=== PATIENT | female | born 1950 | race Caucasian/White ===

== ENCOUNTER → 2016-11-20 | Outpatient (CLI) | payer BC, MEDICARE ==
--- NOTE | 2016-11-20 16:41 | BD ---
EXAMINATION TYPE: MG DEXA axial skeleton. DATE OF EXAM: 11/20/2016 1:19 PM COMPARISON: NONE CLINICAL HISTORY: 66-year-old female postmenopausal screening Height: 5 FT 11 IN Weight: 251 FRAX RISK QUESTIONS: Alcohol (3 or more units per day): N Family History (Parent hip fracture): N Glucocorticoids (More than 3mos): N (Ex: prednisone, prednisolone, methylprednisolone, dexamethasone, and hydrocortisone). History of Fracture in Adulthood: N Secondary Osteoporosis: 1. Type 1 Diabetes: N 2. Hyperthyroidism: N 3. Menopause before 45: YES 4. Malnutrition: NO 5. Chronic liver disease: NO Rheumatoid Arthritis: NO Current Tobacco Use: NO RISK FACTORS HISTORY OF: Active: YES Postmenopausal woman: PART HYST AGE 45 MEDICATIONS: Thyroid Medications: YES Which medication: LEVOTHYROXINE How Lon YR Additional Medications: CARVEDILOL,AMLODIPINE, PREVASTATIN, LEVOTHYROXINE,COQ10,D3 ASA Additional History: EXAM MEASUREMENTS: Bone mineral densitometry was performed using the MDLIVE System. Bone mineral density as measured about the Lumbar spine is: ----- L1-L4(G/cm2): 1.278 T Score Values are as follows: ----- L2: 0.8 ----- L3: 0.8 ----- L4: 1.0 ----- L1-L4: 0.8 Bone mineral density has: Increased 6.0% since study of: 2008 Bone mineral density about the R hip (g/cm2): 0.891 Bone mineral density about the L hip (g/cm2): 0.906 T Score values are as follows: -----R Neck: -1.1 -----L Neck: -0.9 -----R Intertrochanter: -0.4 -----L Intertrochanter: 0.1 Bone mineral density has: Increased 1.4% since study of: 2008 IMPRESSION: Osteopenia as indicated by T score values in the right hip. There is slightly increased risk of fracture and the patient may be considered for treatment. Re-Screen 2-5 years. NOTE: T-SCORE=SD OF THE YOUNG ADULT MEAN.
--- NOTE | 2016-11-23 13:05 | MM ---
Reason for exam: screening (asymptomatic). Last mammogram was performed 1 year ago. History: Patient is postmenopausal. Family history of breast cancer in aunt. Physical Findings: A clinical breast exam by your physician is recommended on an annual basis and results should be correlated with mammographic findings. MG Screening Mammo w CAD Bilateral CC and MLO view(s) were taken. Prior study comparison: November 19, 2015, bilateral MG screening mammo w CAD. November 13, 2014, bilateral MG screening mammo w CAD. There are scattered fibroglandular densities. There is chronic nodularity bilaterally. No significant changes when compared with prior studies. ASSESSMENT: Benign, BI-RAD 2 RECOMMENDATION: Routine screening mammogram of both breasts in 1 year.
== END | disposition home or self-care (01) ==
LOC: RADMAMWWP 12:44
PROVIDERS: ATTEND Internal Medicine
DX: Z12.31 Encounter for screening mammogram for malignant neoplasm of breast (principal); M85.851 Other specified disorders of bone density and structure, right thigh; N95.1 Menopausal and female climacteric states
CPT/HCPCS: 77080; G0202

== ENCOUNTER → 2018-04-01 | Outpatient (CLI) | payer BC ==
--- NOTE | 2018-04-05 13:22 | MM ---
Reason for exam: screening (asymptomatic). Last mammogram was performed 1 year and 4 months ago. History: Patient is postmenopausal. Family history of breast cancer in aunt. Physical Findings: A clinical breast exam by your physician is recommended on an annual basis and results should be correlated with mammographic findings. MG Screening Mammo w CAD Bilateral CC and MLO view(s) were taken. Prior study comparison: November 20, 2016, bilateral MG screening mammo w CAD. November 19, 2015, bilateral MG screening mammo w CAD. There are scattered fibroglandular densities. There is chronic nodularity bilaterally. There is no discrete abnormality. ASSESSMENT: Benign, BI-RAD 2 RECOMMENDATION: Routine screening mammogram of both breasts in 1 year.
== END | disposition home or self-care (01) ==
LOC: RADMAMWWP 12:27
PROVIDERS: ATTEND Internal Medicine
DX: Z12.31 Encounter for screening mammogram for malignant neoplasm of breast (principal)
CPT/HCPCS: 77067

== ENCOUNTER → 2019-04-11 | Outpatient (CLI) | payer BC, MEDICARE ==
--- NOTE | 2019-04-13 10:05 | MM ---
Reason for exam: screening (asymptomatic). Last mammogram was performed 1 year ago. History: Patient is postmenopausal. Family history of breast cancer in aunt. Physical Findings: A clinical breast exam by your physician is recommended on an annual basis and results should be correlated with mammographic findings. MG Screening Mammo w CAD Bilateral CC and MLO view(s) were taken. Prior study comparison: April 01, 2018, bilateral MG screening mammo w CAD. November 20, 2016, bilateral MG screening mammo w CAD. There are scattered fibroglandular densities. There is chronic nodularity in the left breast. No significant changes when compared with prior studies. ASSESSMENT: Negative, BI-RAD 1 RECOMMENDATION: Routine screening mammogram of both breasts in 1 year.
== END | disposition home or self-care (01) ==
LOC: RADMAMWWP 10:08
PROVIDERS: ATTEND Internal Medicine
DX: Z12.31 Encounter for screening mammogram for malignant neoplasm of breast (principal)
CPT/HCPCS: 77067

== ENCOUNTER 2019-08-06 09:51 | Observation (INO) | payer BC, MEDICARE ==
[2019-08-06] MEDS ORDERED: MECLIZINE 12.5 MG TAB PO STA (10:41)
[2019-08-06] MEDS ORDERED: SODIUM CHLORIDE 0.9% 500 ML 500 ML IV STA (10:41)
--- NOTE | 2019-08-06 10:54 | ED ---
General Adult HPI - General Chief complaint: Dizziness Stated complaint: Dizzy Time Seen by Provider: 08/06/19 10:24 Source: patient, RN notes reviewed, old records reviewed Mode of arrival: wheelchair Limitations: no limitations - History of Present Illness Initial comments: 69-year-old female patient passed no history of a fibrillation, hypertension. Patient did have a lobectomy at 8 years old secondary to tuberculosis presents to ED for chief complaint of dizziness and chest pressure. Patient reports that she has a history of vertigo. Patient reports that she had some dizziness yesterday, however was much worse this morning at approximately 5 AM.. Patient reports that she is not a headache, however she feels as if her head is full. She reports that while walking she feels as if she is unsteady. Patient also reports that she is having some mild chest pressure, this also began approximately 5 AM.. Denies any radiation of this pain. Denies any facial droop or focal deficit. Denies any other complaints at this time. Systemic: Pt denies fatigue, fever/chills, rash. Pt denies weakness, night sweats, weight loss. Neuro: Pt denies headache, visual disturbances, syncope or pre-syncope. HEENT: Pt denies ocular discharge or irritation, otalgia, rhinorrhea, pharyngitis or notable lymphadenopathy. Cardiopulmonary: Pt denies heart palpitations, dyspnea on exertion. Abdominal/GI: Pt denies abdominal pain, n/v/d. : Pt denies dysuria, burning w/ urination, frequency/urgency. Denies new onset urinary or bowel incontinence. MSK: Pt denies myalgia, loss of strength or function in extremities. Neuro: Pt denies new onset weakness, paresthesias. - Related Data Home Medications Medication Instructions Recorded Confirmed Carvedilol [Coreg] 18.75 mg PO QAM 04/05/15 11/08/18 Levothyroxine Sodium [Synthroid] 25 mcg PO DAILY 05/24/16 11/08/18 Brimonidine Tartrate [Alphagan P 1 drops BOTH EYES DAILY 11/08/18 11/08/18 0.15% Ophth Soln] Carvedilol [Coreg] 12.5 mg PO HS 11/08/18 11/08/18 Cranberry Fruit Extract [Cranberry] 500 mg PO DAILY 11/08/18 11/08/18 Glucosam/Mark-Msm1/C/Aniket/Bosw 1 tab PO DAILY 11/08/18 11/08/18 [Glucosamine-Chondroitin Tablet] Hydrochlorothiazide [Hydrodiuril] 25 mg PO DAILY@1400 11/08/18 11/08/18 Pravastatin Sodium [Pravachol] 10 mg PO HS 11/08/18 11/08/18 Ubidecarenone [Co Q-10] 100 mg PO DAILY 11/08/18 11/08/18 Previous Rx's Medication Instructions Recorded Aspirin 81 mg PO DAILY 30 Days #30 chewable 11/10/18 Allergies Allergy/AdvReac Type Severity Reaction Status Date / Time NIKHIL Inhibitors Allergy Dyspnea,SWELLING Verified 08/06/19 10:18 OF NECK amlodipine besylate Allergy Dyspnea, Verified 08/06/19 10:18 [From Norvasc] SWELLING OF NECK, ITCHING ciprofloxacin [From Cipro] Allergy VERTIGO Verified 08/06/19 10:18 ciprofloxacin HCl Allergy VERTIGO Verified 08/06/19 10:18 [From Cipro] clonidine HCl [From Catapres] Allergy Dyspnea Verified 08/06/19 10:18 digoxin [From Lanoxin] Allergy Rapid Verified 08/06/19 10:18 Heart Rate diltiazem HCl [From Cardizem] Allergy Itching Verified 08/06/19 10:18 hydralazine [Hydralazine] Allergy Abdominal Verified 08/06/19 10:18 Pain hydrochlorothiazide Allergy FLUSHING Verified 08/06/19 10:18 OF SKIN,BLURRY VISION iodine Allergy Rash/Hives Verified 08/06/19 10:18 metoprolol tartrate Allergy Itching Verified 08/06/19 10:18 [From Lopressor] nebivolol HCl [From Bystolic] Allergy Dyspnea,SWELLING Verified 08/06/19 10:18 OF NECK povidone-iodine Allergy Rash/Hives Verified 08/06/19 10:18 [From Betadine] ramipril [From Altace] Allergy Dyspnea,ANG Verified 08/06/19 10:18 IOEDEMA soap [From Betadine] Allergy Rash/Hives Verified 08/06/19 10:18 sulfamethoxazole Allergy Rash/Hives Verified 08/06/19 10:18 [From Bactrim] trimethoprim [From Bactrim] Allergy Rash/Hives Verified 08/06/19 10:18 warfarin sodium Allergy SEVERE Verified 08/06/19 10:18 [From Coumadin] HEADACHE, RING OF EARS Wcbpuci-Ufr-Doi Reductase AdvReac VERY WEAK Verified 08/06/19 10:18 Inhibitor CARVEDIOL CR Allergy DYSPNEA,CAN Uncoded 08/06/19 10:18 TAKE COREG PLAIN" Review of Systems ROS Statement: Those systems with pertinent positive or pertinent negative responses have been documented in the HPI. ROS Other: All systems not noted in ROS Statement are negative. Past Medical History Past Medical History: Atrial Fibrillation, Hypertension Additional Past Medical History / Comment(s): TB at age 8 yrs-spent [address] [facility] and then they decided to to do a L lung lobectomy-chest xrays since have been negative. History of Any Multi-Drug Resistant Organisms: None Reported Past Surgical History: Hysterectomy Additional Past Surgical History / Comment(s): LEFT LUNG LOBECTOMY at age 8 yrs. ,APPENDECTOMY,PAROTID GLAND TUMOR REMOVED-benign, colonoscopy 2013-normal. Past Anesthesia/Blood Transfusion Reactions: Motion Sickness Past Psychological History: No Psychological Hx Reported Smoking Status: Former smoker Past Alcohol Use History: None Reported Past Drug Use History: None Reported - Past Family History Father Family Medical History: Hypertension General Exam - General Exam Comments Initial Comments: Constitutional: NAD, AOX3, Pt has pleasant affect. HEENT: NC/AT, trachea midline, neck supple, no lymphadenopathy. Posterior pharynx non erythematous, without exudates. External ears appear normal, without discharge. Mucous membranes moist. Eyes PERRLA, EOM intact. There is no scleral icterus. No pallor noted. Cardiopulmonary: RRR, no murmurs, rubs or gallops, no JVD noted. Lungs CTAB in anterior and posterior contreras. No peripheral edema. Abdominal exam: Abdomen soft and non-distended. Abdomen non-tender to palpation in all 4 quadrants. Bowel sounds active in LLQ. No hepatosplenomegaly. No ecchymosis Neuro: CN II-XII intact. No nuchal rigidity. No raccon eyes, no bryant sign, no hemotympanum. No cervical spinal tenderness. NIH 0. MSK: No posterior calf tenderness bilaterally, homans sign negative bilaterally. Posterior tibialis and radial pulse +2 bilaterally. Sensation intact in upper and lower extremities. Full active ROM in upper and lower extremities, 5/5 stregnth. Limitations: no limitations Course Vital Signs 08/06/19 08/06/19 08/06/19 10:15 10:32 11:00 Temperature 98.0 F Pulse Rate 80 67 66 Respiratory 18 15 12 Rate Blood Pressure 190/74 151/93 O2 Sat by Pulse 97 98 96 Oximetry 08/06/19 08/06/19 11:30 12:17 Temperature Pulse Rate 66 60 Respiratory 19 16 Rate Blood Pressure 144/74 136/70 O2 Sat by Pulse 95 99 Oximetry Medical Decision Making - Medical Decision Making 69-year-old female patient passed no history of a fibrillation, hypertension. Patient did have a lobectomy at 8 years old secondary to tuberculosis presents to ED for chief complaint of dizziness and chest pressure. Patient reports that she has a history of vertigo. Patient reports that she had some dizziness yesterday, however was much worse this morning at approximately 5 AM.. Patient reports that she is not a headache, however she feels as if her head is full. She reports that while walking she feels as if she is unsteady. Patient also reports that she is having some mild chest pressure, this also began approximately 5 AM.. Denies any radiation of this pain. Denies any facial droop or focal deficit. Denies any other complaints at this time. Vital signs initially displayed hypertension, improved to normotensive without intervention. Physical exam did not display acute pathology. Neurologic exam is within normal limits. NIH 0. Dizziness/vertigo sensation is reproducible with lateral head movement. The investigations are non-impressive. Troponin is negative. EKG is nonischemic. Patient does report that chest pressure resolved without any intervention. Chest x-ray CT brain did not display acute process. Still endorses some dizziness, however states is improved. Does appear to be vertigo- like in nature. Patient be admitted for cardiology evaluation and serial enzymes. Case discussed with Dr. De La Cruz. Patient can Reportedly not take aspirin due to bleeding issues. - Lab Data Result diagrams: 08/06/19 10:43 08/06/19 10:43 Lab Results 08/06/19 08/06/19 08/06/19 Range/Units 10:43 10:43 10:43 WBC 7.3 (3.8-10.6) k/uL RBC 4.71 (3.80-5.40) m/uL Hgb 14.0 (11.4-16.0) gm/dL Hct 42.2 (34.0-46.0) % MCV 89.7 (80.0-100.0) fL MCH 29.8 (25.0-35.0) pg MCHC 33.2 (31.0-37.0) g/dL RDW 12.7 (11.5-15.5) % Plt Count 318 (150-450) k/uL Neutrophils % 77 % Lymphocytes % 15 % Monocytes % 3 % Eosinophils % 2 % Basophils % 1 % Neutrophils # 5.6 (1.3-7.7) k/uL Lymphocytes # 1.1 (1.0-4.8) k/uL Monocytes # 0.2 (0-1.0) k/uL Eosinophils # 0.2 (0-0.7) k/uL Basophils # 0.1 (0-0.2) k/uL PT (9.0-12.0) sec INR (<1.2) APTT (22.0-30.0) sec Sodium 140 (137-145) mmol/L Potassium 3.9 (3.5-5.1) mmol/L Chloride 105 (98-107) mmol/L Carbon Dioxide 29 (22-30) mmol/L Anion Gap 6 mmol/L BUN 10 (7-17) mg/dL Creatinine 0.74 (0.52-1.04) mg/dL Est GFR (CKD-EPI)AfAm >90 (>60 ml/min/1.73 sqM) Est GFR (CKD-EPI)NonAf 84 (>60 ml/min/1.73 sqM) Glucose 106 H (74-99) mg/dL Calcium 9.8 (8.4-10.2) mg/dL Total Bilirubin 0.8 (0.2-1.3) mg/dL AST 35 (14-36) U/L ALT 16 (4-34) U/L Alkaline Phosphatase 93 (38-126) U/L Troponin I <0.012 (0.000-0.034) ng/mL Total Protein 8.0 (6.3-8.2) g/dL Albumin 4.6 (3.5-5.0) g/dL Urine Color Urine Appearance (Clear) Urine pH (5.0-8.0) Ur Specific [place] (1.001-1.035) Urine Protein (Negative) Urine Glucose (UA) (Negative) Urine Ketones (Negative) Urine Blood (Negative) Urine Nitrite (Negative) Urine Bilirubin (Negative) Urine Urobilinogen (<2.0) mg/dL Ur Leukocyte Esterase (Negative) 08/06/19 08/06/19 Range/Units 10:43 11:40 WBC (3.8-10.6) k/uL RBC (3.80-5.40) m/uL Hgb (11.4-16.0) gm/dL Hct (34.0-46.0) % MCV (80.0-100.0) fL MCH (25.0-35.0) pg MCHC (31.0-37.0) g/dL RDW (11.5-15.5) % Plt Count (150-450) k/uL Neutrophils % % Lymphocytes % % Monocytes % % Eosinophils % % Basophils % % Neutrophils # (1.3-7.7) k/uL Lymphocytes # (1.0-4.8) k/uL Monocytes # (0-1.0) k/uL Eosinophils # (0-0.7) k/uL Basophils # (0-0.2) k/uL PT 10.1 (9.0-12.0) sec INR 0.9 (<1.2) APTT 25.0 (22.0-30.0) sec Sodium (137-145) mmol/L Potassium (3.5-5.1) mmol/L Chloride (98-107) mmol/L Carbon Dioxide (22-30) mmol/L Anion Gap mmol/L BUN (7-17) mg/dL Creatinine (0.52-1.04) mg/dL Est GFR (CKD-EPI)AfAm (>60 ml/min/1.73 sqM) Est GFR (CKD-EPI)NonAf (>60 ml/min/1.73 sqM) Glucose (74-99) mg/dL Calcium (8.4-10.2) mg/dL Total Bilirubin (0.2-1.3) mg/dL AST (14-36) U/L ALT (4-34) U/L Alkaline Phosphatase (38-126) U/L Troponin I (0.000-0.034) ng/mL Total Protein (6.3-8.2) g/dL Albumin (3.5-5.0) g/dL Urine Color Light Yellow Urine Appearance Clear (Clear) Urine pH 7.5 (5.0-8.0) Ur Specific [place] 1.003 (1.001-1.035) Urine Protein Negative (Negative) Urine Glucose (UA) Negative (Negative) Urine Ketones Negative (Negative) Urine Blood Negative (Negative) Urine Nitrite Negative (Negative) Urine Bilirubin Negative (Negative) Urine Urobilinogen <2.0 (<2.0) mg/dL Ur Leukocyte Esterase Negative (Negative) Disposition Clinical Impression: Dizziness, Chest pressure, Vertigo Disposition: ADMITTED IP TO THIS HOSP Condition: Stable Is patient prescribed a controlled substance at d/c from ED?: No Referrals: Kathie St MD [Primary Care Provider] - 1-2 days
[2019-08-06 10:58] LABS: Basophils # (A) 0.1 k/uL (0-0.2); Basophils % (A) 1 %; Eosinophils # (A) 0.2 k/uL (0-0.7); Eosinophils % (A) 2 %; HCT 42.2 % (34.0-46.0); Lymphocytes # (A) 1.1 k/uL (1.0-4.8); Lymphocytes % (A) 15 %; MCH 29.8 pg (25.0-35.0); MCHC 33.2 g/dL (31.0-37.0); MCV 89.7 fL (80.0-100.0); Mean Platelet Volume 7.4; Monocytes # (A) 0.2 k/uL (0-1.0); Monocytes % (A) 3 %; Neutrophils # (A) 5.6 k/uL (1.3-7.7); Neutrophils % (A) 77 %; Platelet Count 318 k/uL (150-450); RBC 4.71 m/uL (3.80-5.40); RDW 12.7 % (11.5-15.5); WBC 7.3 k/uL (3.8-10.6)
[2019-08-06 11:07] LABS: ALT 16 U/L (4-34); AST 35 U/L (14-36); African American GFR (CKD) >90 (>60 ml/min/1.73 sqM); Albumin 4.6 g/dL (3.5-5.0); Alkaline Phosphatase 93 U/L (38-126); Anion Gap 6 mmol/L; Blood Urea Nitrogen 10 mg/dL (7-17); Calcium 9.8 mg/dL (8.4-10.2); Carbon Dioxide 29 mmol/L (22-30); Chloride 105 mmol/L (98-107); Glucose 106 mg/dL (74-99); Non-African American GFR(CKD) 84 (>60 ml/min/1.73 sqM); Potassium 3.9 mmol/L (3.5-5.1); Sodium 140 mmol/L (137-145); Total Bilirubin 0.8 mg/dL (0.2-1.3)
[2019-08-06 11:12] LABS: INR 0.9 (<1.2); Prothrombin Time 10.1 sec (9.0-12.0)
--- NOTE | 2019-08-06 11:28 | CT ---
EXAMINATION TYPE: CT brain wo con DATE OF EXAM: 08/06/2019 COMPARISON: Previous study dated 11/08/2018 HISTORY: Dizziness CT DLP: 1131.4 mGycm Automated exposure control for dose reduction was used. FINDINGS: Central structures are midline. There is no evidence of hydrocephalus. No acute focal lesion, mass ef fect or midline shift is seen. I do not see evidence of intracranial blood. Visualized portions of the paranasal sinuses and mastoids are clear. The bony calvarium is intact. Th ere is at least 2 small subcutaneous lesions in the posterior right occipital parietal region, likely representing sebaceous cysts. IMPRESSION: 1. NO ACUTE INTRACRANIAL ABNORMALITY. 2. PROBABLE SEBACEOUS CYST WITHIN THE SCALP IN THE RIGHT POSTERIOR PARIETAL REGION.
--- NOTE | 2019-08-06 11:38 | XR ---
EXAMINATION TYPE: XR chest 2V DATE OF EXAM: 08/06/2019 HISTORY: chest pressure. REFERENCE: Previous study dated 11/08/2018. FINDINGS: There is chronic pleural parenchymal density on the left. Lungs otherwise clear. Heart size upper limits of normal. IMPRESSION: NO SIGNIFICANT INTERVAL CHANGE IN THE APPEARANCE OF THE CHEST.
[2019-08-06 11:50] LABS: Appearance,Urine Clear (Clear); Bilirubin,Urine Negative (Negative); Blood,Urine Negative (Negative); Color,Urine Light Yellow; Glucose,Urine (UA) Negative (Negative); Ketones,Urine Negative (Negative); Leukocyte Esterase,Urine Negative (Negative); Nitrite,Urine Negative (Negative); PH, Urine 7.5 (5.0-8.0); Protein,Urine Negative (Negative); Specific Gravity,Urine 1.003 (1.001-1.035); Urobilinogen,Urine <2.0 mg/dL (<2.0)
[2019-08-06] MEDS ORDERED: METOCLOPRAMIDE 5 MG/ML 2 ML VIAL IVP STA (12:05)
[2019-08-06] MEDS ORDERED: NITROGLYCERIN SL TABS 0.4 MG TAB SUBLINGUAL PRN (12:54)
[2019-08-06] MEDS ORDERED: MECLIZINE 25 MG TAB PO PRN (12:56)
--- NOTE | 2019-08-06 12:59 | ED ---
Medical Decision Making - Lab Data Result diagrams: 08/06/19 10:43 08/06/19 10:43 Lab Results 08/06/19 08/06/19 08/06/19 Range/Units 10:43 10:43 10:43 WBC 7.3 (3.8-10.6) k/uL RBC 4.71 (3.80-5.40) m/uL Hgb 14.0 (11.4-16.0) gm/dL Hct 42.2 (34.0-46.0) % MCV 89.7 (80.0-100.0) fL MCH 29.8 (25.0-35.0) pg MCHC 33.2 (31.0-37.0) g/dL RDW 12.7 (11.5-15.5) % Plt Count 318 (150-450) k/uL Neutrophils % 77 % Lymphocytes % 15 % Monocytes % 3 % Eosinophils % 2 % Basophils % 1 % Neutrophils # 5.6 (1.3-7.7) k/uL Lymphocytes # 1.1 (1.0-4.8) k/uL Monocytes # 0.2 (0-1.0) k/uL Eosinophils # 0.2 (0-0.7) k/uL Basophils # 0.1 (0-0.2) k/uL PT (9.0-12.0) sec INR (<1.2) APTT (22.0-30.0) sec Sodium 140 (137-145) mmol/L Potassium 3.9 (3.5-5.1) mmol/L Chloride 105 (98-107) mmol/L Carbon Dioxide 29 (22-30) mmol/L Anion Gap 6 mmol/L BUN 10 (7-17) mg/dL Creatinine 0.74 (0.52-1.04) mg/dL Est GFR (CKD-EPI)AfAm >90 (>60 ml/min/1.73 sqM) Est GFR (CKD-EPI)NonAf 84 (>60 ml/min/1.73 sqM) Glucose 106 H (74-99) mg/dL Calcium 9.8 (8.4-10.2) mg/dL Total Bilirubin 0.8 (0.2-1.3) mg/dL AST 35 (14-36) U/L ALT 16 (4-34) U/L Alkaline Phosphatase 93 (38-126) U/L Troponin I <0.012 (0.000-0.034) ng/mL Total Protein 8.0 (6.3-8.2) g/dL Albumin 4.6 (3.5-5.0) g/dL Urine Color Urine Appearance (Clear) Urine pH (5.0-8.0) Ur Specific [place] (1.001-1.035) Urine Protein (Negative) Urine Glucose (UA) (Negative) Urine Ketones (Negative) Urine Blood (Negative) Urine Nitrite (Negative) Urine Bilirubin (Negative) Urine Urobilinogen (<2.0) mg/dL Ur Leukocyte Esterase (Negative) 08/06/19 08/06/19 Range/Units 10:43 11:40 WBC (3.8-10.6) k/uL RBC (3.80-5.40) m/uL Hgb (11.4-16.0) gm/dL Hct (34.0-46.0) % MCV (80.0-100.0) fL MCH (25.0-35.0) pg MCHC (31.0-37.0) g/dL RDW (11.5-15.5) % Plt Count (150-450) k/uL Neutrophils % % Lymphocytes % % Monocytes % % Eosinophils % % Basophils % % Neutrophils # (1.3-7.7) k/uL Lymphocytes # (1.0-4.8) k/uL Monocytes # (0-1.0) k/uL Eosinophils # (0-0.7) k/uL Basophils # (0-0.2) k/uL PT 10.1 (9.0-12.0) sec INR 0.9 (<1.2) APTT 25.0 (22.0-30.0) sec Sodium (137-145) mmol/L Potassium (3.5-5.1) mmol/L Chloride (98-107) mmol/L Carbon Dioxide (22-30) mmol/L Anion Gap mmol/L BUN (7-17) mg/dL Creatinine (0.52-1.04) mg/dL Est GFR (CKD-EPI)AfAm (>60 ml/min/1.73 sqM) Est GFR (CKD-EPI)NonAf (>60 ml/min/1.73 sqM) Glucose (74-99) mg/dL Calcium (8.4-10.2) mg/dL Total Bilirubin (0.2-1.3) mg/dL AST (14-36) U/L ALT (4-34) U/L Alkaline Phosphatase (38-126) U/L Troponin I (0.000-0.034) ng/mL Total Protein (6.3-8.2) g/dL Albumin (3.5-5.0) g/dL Urine Color Light Yellow Urine Appearance Clear (Clear) Urine pH 7.5 (5.0-8.0) Ur Specific [place] 1.003 (1.001-1.035) Urine Protein Negative (Negative) Urine Glucose (UA) Negative (Negative) Urine Ketones Negative (Negative) Urine Blood Negative (Negative) Urine Nitrite Negative (Negative) Urine Bilirubin Negative (Negative) Urine Urobilinogen <2.0 (<2.0) mg/dL Ur Leukocyte Esterase Negative (Negative) - EKG Data -: EKG Interpreted by Me (and Dr. De La Cruz) EKG Comments: Ventricular rate 71, painful and 22, QRS 84, QT/QTc 412/447. Normal sinus rhythm, normal EKG, no concern for acute ischemia. Disposition Clinical Impression: Dizziness, Chest pressure, Vertigo Disposition: ADMITTED IP TO THIS [facility] Condition: Stable Is patient prescribed a controlled substance at d/c from ED?: No Referrals: Kathie St MD [Primary Care Provider] - 1-2 days
[2019-08-06 14:48] VITALS: RESP 18
[2019-08-06] MEDS: CARVEDILOL 12.5 MG TAB PO SCH (21:31)
[2019-08-07 06:36] LABS: Cholesterol 181 mg/dL (<200); HDL Cholesterol 60 mg/dL (40-60); LDL Cholesterol,Calculated 101 mg/dL (0-99); Triglycerides 100 mg/dL (<150)
[2019-08-07] MEDS: CARVEDILOL 12.5 MG TAB PO SCH (08:43)
[2019-08-07 08:45] LABS: Basophils # (A) 0.1 k/uL (0-0.2); Basophils % (A) 1 %; Eosinophils # (A) 0.2 k/uL (0-0.7); Eosinophils % (A) 4 %; HCT 38.1 % (34.0-46.0); HGB 12.6 gm/dL (11.4-16.0); Lymphocytes # (A) 1.5 k/uL (1.0-4.8); Lymphocytes % (A) 28 %; MCH 30.3 pg (25.0-35.0); MCV 91.9 fL (80.0-100.0); Mean Platelet Volume 7.8; Monocytes # (A) 0.4 k/uL (0-1.0); Monocytes % (A) 8 %; Neutrophils # (A) 3.2 k/uL (1.3-7.7); Neutrophils % (A) 59 %; Platelet Count 270 k/uL (150-450); RBC 4.15 m/uL (3.80-5.40); RDW 12.9 % (11.5-15.5); WBC 5.6 k/uL (3.8-10.6)
[2019-08-07] MEDS ORDERED: MECLIZINE 25 MG TAB PO SCH (09:00)
[2019-08-07 09:18] LABS: ALT 13 U/L (4-34); AST 26 U/L (14-36); African American GFR (CKD) >90 (>60 ml/min/1.73 sqM); Albumin 3.6 g/dL (3.5-5.0); Alkaline Phosphatase 71 U/L (38-126); Anion Gap 9 mmol/L; Blood Urea Nitrogen 13 mg/dL (7-17); Calcium 9.3 mg/dL (8.4-10.2); Carbon Dioxide 27 mmol/L (22-30); Chloride 105 mmol/L (98-107); Glucose 92 mg/dL (74-99); Non-African American GFR(CKD) 78 (>60 ml/min/1.73 sqM); Potassium 3.5 mmol/L (3.5-5.1); Sodium 141 mmol/L (137-145); Total Bilirubin 0.6 mg/dL (0.2-1.3); Total Protein 6.6 g/dL (6.3-8.2)
--- NOTE | 2019-08-07 09:48 | P.HPIM ---
History of Present Illness H&P Date: 08/07/19 Chief Complaint: chest pain, dizziness This is a 69-year-old female patient who presented to the ER with complaint of chest pressure and dizziness. Patient reports that symptoms started yesterday around 5 AM patient reports that she had a headache first with some dizziness then progressed to chest discomfort across her chest. Patient does report that she has a history of vertigo. 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 Head CT completed showing no acute intracranial abnormality. Probable sebaceous cyst within the scalp in the right posterior parietal region. His x-ray completed showing no significant interval change in appearance of the chest. EKG completed showing normal sinus rhythm normal EKG. She underwent cardiac catheterization in October 2018 which showed mild nonobstructive coronary artery disease involving the left. Descending artery in the midportion normal left ventricle systolic function per cardiology medical management that time. Troponins negative 3. UA negative. At this time will order carotid Doppler. Cardiology services have been consulted. On examination patient feels significantly improved. Antivert did help with dizziness symptoms. Patient denies chest pain or shortness of breath. Patient denies any nausea vomiting or diarrhea. Patient denies any urinary burning or frequency Review of Systems please refer to HPI otherwise unremarkable Past Medical History Past Medical History: Atrial Fibrillation, Hypertension Additional Past Medical History / Comment(s): TB at age 8 yrs-spent 9 months in [facility] and then they decided to to do a L lung lobectomy-chest xrays since have been negative. History of Any Multi-Drug Resistant Organisms: None Reported Past Surgical History: Hysterectomy Additional Past Surgical History / Comment(s): LEFT LUNG LOBECTOMY at age 8 yrs. ,APPENDECTOMY,PAROTID GLAND TUMOR REMOVED-benign, colonoscopy 2013-normal. Past Anesthesia/Blood Transfusion Reactions: Motion Sickness Past Psychological History: No Psychological Hx Reported Additional Psychological History / Comment(s): Pt resides with her spouse. She is independent. She uses no assistive device or home care. She drives. Smoking Status: Former smoker Past Alcohol Use History: None Reported Additional Past Alcohol Use History / Comment(s): Pt quit smoking in 1984 Past Drug Use History: None Reported - Past Family History Father Family Medical History: Hypertension Medications and Allergies Home Medications Medication Instructions Recorded Confirmed Type Levothyroxine Sodium [Synthroid] 25 mcg PO DAILY 05/24/16 08/06/19 History Brimonidine Tartrate [Alphagan P 1 drops BOTH EYES BID 11/08/18 08/06/19 History 0.15% Ophth Soln] Carvedilol [Coreg] 12.5 mg PO BID 11/08/18 08/06/19 History Cranberry Fruit Extract [Cranberry] 500 mg PO DAILY 11/08/18 08/06/19 History Glucosam/Mark-Msm1/C/Aniket/Bosw 1 tab PO DAILY 11/08/18 08/06/19 History [Glucosamine-Chondroitin Tablet] Hydrochlorothiazide [Hydrodiuril] 25 mg PO DAILY@1400 11/08/18 08/06/19 History Ubidecarenone [Co Q-10] 100 mg PO DAILY 11/08/18 08/06/19 History Pravastatin Sodium [Pravachol] 10 mg PO HS 08/06/19 08/06/19 History Turmeric Root Extract [Turmeric] 500 mg PO DAILY 08/06/19 08/06/19 History Allergies Allergy/AdvReac Type Severity Reaction Status Date / Time NIKHIL Inhibitors Allergy Dyspnea,SWELLING Verified 08/06/19 14:25 OF NECK amlodipine besylate Allergy Dyspnea, Verified 08/06/19 14:25 [From Norvasc] SWELLING OF NECK, ITCHING ciprofloxacin [From Cipro] Allergy VERTIGO Verified 08/06/19 14:25 ciprofloxacin HCl Allergy VERTIGO Verified 08/06/19 14:25 [From Cipro] clonidine HCl [From Catapres] Allergy Dyspnea Verified 08/06/19 14:25 digoxin [From Lanoxin] Allergy Rapid Verified 08/06/19 14:25 Heart Rate diltiazem HCl [From Cardizem] Allergy Itching Verified 08/06/19 14:25 hydralazine [Hydralazine] Allergy Abdominal Verified 08/06/19 14:25 Pain hydrochlorothiazide Allergy FLUSHING Verified 08/06/19 14:25 OF SKIN,BLURRY VISION iodine Allergy Rash/Hives Verified 08/06/19 14:25 metoprolol tartrate Allergy Itching Verified 08/06/19 14:25 [From Lopressor] nebivolol HCl [From Bystolic] Allergy Dyspnea,SWELLING Verified 08/06/19 14:25 OF NECK povidone-iodine Allergy Rash/Hives Verified 08/06/19 14:25 [From Betadine] ramipril [From Altace] Allergy Dyspnea,ANG Verified 08/06/19 14:25 IOEDEMA soap [From Betadine] Allergy Rash/Hives Verified 08/06/19 14:25 sulfamethoxazole Allergy Rash/Hives Verified 08/06/19 14:25 [From Bactrim] trimethoprim [From Bactrim] Allergy Rash/Hives Verified 08/06/19 14:25 warfarin sodium Allergy SEVERE Verified 08/06/19 14:25 [From Coumadin] HEADACHE, RING OF EARS Gkshydv-Tkg-Ysu Reductase AdvReac VERY WEAK Verified 08/06/19 14:25 Inhibitor CARVEDIOL CR Allergy DYSPNEA,CAN Uncoded 08/06/19 10:18 TAKE COREG PLAIN" Physical Exam Vitals: Vital Signs Temp Pulse Pulse Resp BP BP BP 08/07/19 08:00 98.3 F 70 18 163/90 08/07/19 03:38 97.5 F L 67 18 123/63 08/06/19 23:35 97.4 F L 78 18 93/51 08/06/19 19:34 98.5 F 67 18 154/87 08/06/19 14:47 98.4 F 73 18 154/89 08/06/19 14:22 97.9 F 78 16 132/75 08/06/19 12:17 60 16 136/70 08/06/19 11:30 66 19 144/74 08/06/19 11:00 66 12 151/93 08/06/19 10:32 67 15 08/06/19 10:15 98.0 F 80 18 190/74 Pulse Ox 08/07/19 08:00 96 08/07/19 03:38 95 08/06/19 23:35 96 08/06/19 19:34 96 08/06/19 14:47 97 08/06/19 14:22 98 08/06/19 12:17 99 08/06/19 11:30 95 08/06/19 11:00 96 08/06/19 10:32 98 08/06/19 10:15 97 Intake and Output 08/06/19 08/07/19 08/07/19 22:59 06:59 14:59 Other: Voiding Method Toilet Toilet Toilet # Voids 1 1 Weight 113.398 kg Head normocephalic Neck supple Lungs clear to auscultation bilaterally no wheezing or crackles Heart regular rate and rhythm S1-S2, no rub or gallop Abdomen is soft nontender nondistended positive bowel sounds no hepatosplenomegaly Extremities no edema Neuro alert and orientated to 3 Results CBC & Chem 7: 08/07/19 05:56 08/07/19 05:56 Labs: Abnormal Lab Results - Last 24 Hours (Table) 08/06/19 08/07/19 Range/Units 10:43 05:56 Glucose 106 H (74-99) mg/dL LDL Cholesterol, Calc 101 H (0-99) mg/dL Thrombosis Risk Factor Assmnt - Choose All That Apply Any of the Below Risk Factors Present?: Yes Each Factor Represents 1 point: Obesity (BMI >25) Other Risk Factors: Yes Each Risk Factor Represents 2 Points: Age 61-74 years Thrombosis Risk Factor Assessment Total Risk Factor Score: 3 Thrombosis Risk Factor Assessment Level: Moderate Risk Assessment and Plan Assessment: 1. Chest pain with dizziness. Head CT completed showing no acute intracranial abnormality. Probable sebaceous cyst within the scalp in the right posterior parietal region. Cardiology services have been consulted. Troponins negative 3. Patient underwent cardiac catheterization in October 2018 which showed mild nonobstructive coronary artery disease involving the left anterior descending artery in the midportion normal left ventricular systolic function medical management. 2-D echo also completed in October 2018 showing an EF of 50-55%. Discussed case with cardiology Dr. Grande. No further cardiac workup at this time. Will order carotid Doppler 2. Hyperlipidemia. Patient maintained on statin 3. History of vertigo. Patient is maintained on Antivert 4. History of essential hypertension pulmonary present 5. History of atrial fibrillation patient reports this was a one-time occurrence. Never started on anticoagulation Cardiology services have been consulted Carotid Doppler has been completed Time with Patient: Greater than 30 (Greater than 60% of the total time spent in counseling and coordination of care. I performed an examination of the patient and discussed their management with the Nurse Practitioner. I have reviewed the Nurse Practitioner's notes and agree with the documented findings and plan of c are)
--- NOTE | 2019-08-07 09:54 | P.CRDCN ---
History of Present Illness History of present illness: HISTORY OF PRESENTING ILLNESS This is a pleasant 69-year-old female past medical history significant for hypertension and mild coronary artery disease in the LAD. She follows in the office with Dr. Rouse. We have been asked to see in consultation for chest pain. She states she woke up yesterday around 0500 with symptoms of dizziness. She states she felt like the floor was moving and she could not get her balance. She felt like she was going to fall. The dizziness was worse when she moved her head from side to side. She also was experiencing pressure in the chest. She states she frequently has chest pressure when her blood pressure is elevated. She underwent a heart catheterization with Dr. Rouse in October of this year that revealed overall normal coronary arteries with mild 20% plaque in the LAD. She was given antivert yesterday in the ER that did improve her symptoms however did not completely resolve her dizziness. She is up ambulating in the room without difficulty, however when she moves her head from side to side she continues to feel dizzy. She has had vertigo in the past that was resistant to antivert. She denies palpitations of shortness of breath. DIAGNOSTICS EKG reveals sinus mechanism with no acute changes. Chest xray negative for an acute cardiopulmonary process. Laboratory reviewed, WBC 5.6, hgb 12.6, plt 270, sodium 141, potassium 3.5, creatinine 0.78, cardiac enzymes negative x3, LDL 101. Current cardiac medications include coreg 12.5 BID, pravastatin 10 mg daily, hydrochlorothiazide 25 mg daily. Most recent echocardiogram obtained in October 2018 reveals preserved LV systolic function with ejection fraction 50-55%, mild MR and mild TR. REVIEW OF SYSTEMS At the time of my exam: CONSTITUTIONAL: Denies fever or chills. CARDIOVASCULAR: Denies chest pain, shortness of breath, orthopnea, PND or palpitations. RESPIRATORY: Denies cough. GASTROINTESTINAL: Denies abdominal pain, diarrhea, constipation, nausea or vomiting. MUSCULOSKELETAL: Denies myalgias. NEUROLOGIC: Complains of dizziness. Denies numbness, tingling or weakness. ENDOCRINE: Denies fatigue, weight change, polydipsia or polyurina. GENITOURINARY: Denies burning, hematuria or urgency with micturation. HEMATOLOGIC: Denies history of anemia or bleeding. PHYSICAL EXAMINATION Blood pressure 163/90 heart rate 70 afebrile and maintaining oxygen saturation on room air. CONSTITUTIONAL: No apparent distress. HEENT: Head is normocephalic. Pupils are equal, round. Sclerae anicteric. Mucous membranes of the mouth are moist. No JVD. No carotid bruit. CHEST EXAMINATION: Lungs are clear to auscultation. No chest wall tenderness is noted on palpation or with deep breathing. HEART EXAMINATION: Regular rate and rhythm. S1, S2 heard. No murmurs, gallops or rub. ABDOMEN: Soft, nontender. Positive bowel sounds. EXTREMITIES: 2+ peripheral pulses, no lower extremity edema and no calf tenderness. NEUROLOGIC EXAMINATION: Patient is awake, alert and oriented x3. ASSESSMENT Dizziness suggestive of vertigo Hypertension Mild non-obstructive CAD PLAN An acute coronary event has been ruled out. Give antivert now scheduled. Resume pravastatin and hydrochlorothiazide as previously ordered. No further cardiac testing. Follow up upon discharge with Dr. Rouse. Thank you kindly for this consultation. Nurse Practitioner note has been reviewed, I agree with a documented findings and plan of care. Patient was seen and examined. Past Medical History Past Medical History: Atrial Fibrillation, Hypertension Additional Past Medical History / Comment(s): TB at age 8 yrs-spent 9 months in [facility] and then they decided to to do a L lung lobectomy-chest xrays since have been negative. History of Any Multi-Drug Resistant Organisms: None Reported Past Surgical History: Hysterectomy Additional Past Surgical History / Comment(s): LEFT LUNG LOBECTOMY at age 8 yrs. ,APPENDECTOMY,PAROTID GLAND TUMOR REMOVED-benign, colonoscopy 2013-normal. Past Anesthesia/Blood Transfusion Reactions: Motion Sickness Past Psychological History: No Psychological Hx Reported Additional Psychological History / Comment(s): Pt resides with her spouse. She is independent. She uses no assistive device or home care. She drives. Smoking Status: Former smoker Past Alcohol Use History: None Reported Additional Past Alcohol Use History / Comment(s): Pt quit smoking in 1984 Past Drug Use History: None Reported - Past Family History Father Family Medical History: Hypertension Medications and Allergies Home Medications Medication Instructions Recorded Confirmed Type Levothyroxine Sodium [Synthroid] 25 mcg PO DAILY 05/24/16 08/06/19 History Brimonidine Tartrate [Alphagan P 1 drops BOTH EYES BID 11/08/18 08/06/19 History 0.15% Ophth Soln] Carvedilol [Coreg] 12.5 mg PO BID 11/08/18 08/06/19 History Cranberry Fruit Extract [Cranberry] 500 mg PO DAILY 11/08/18 08/06/19 History Glucosam/Mark-Msm1/C/Aniket/Bosw 1 tab PO DAILY 11/08/18 08/06/19 History [Glucosamine-Chondroitin Tablet] Hydrochlorothiazide [Hydrodiuril] 25 mg PO DAILY@1400 11/08/18 08/06/19 History Ubidecarenone [Co Q-10] 100 mg PO DAILY 11/08/18 08/06/19 History Pravastatin Sodium [Pravachol] 10 mg PO HS 08/06/19 08/06/19 History Turmeric Root Extract [Turmeric] 500 mg PO DAILY 08/06/19 08/06/19 History Allergies Allergy/AdvReac Type Severity Reaction Status Date / Time NIKHIL Inhibitors Allergy Dyspnea,SWELLING Verified 08/06/19 14:25 OF NECK amlodipine besylate Allergy Dyspnea, Verified 08/06/19 14:25 [From Norvasc] SWELLING OF NECK, ITCHING ciprofloxacin [From Cipro] Allergy VERTIGO Verified 08/06/19 14:25 ciprofloxacin HCl Allergy VERTIGO Verified 08/06/19 14:25 [From Cipro] clonidine HCl [From Catapres] Allergy Dyspnea Verified 08/06/19 14:25 digoxin [From Lanoxin] Allergy Rapid Verified 08/06/19 14:25 Heart Rate diltiazem HCl [From Cardizem] Allergy Itching Verified 08/06/19 14:25 hydralazine [Hydralazine] Allergy Abdominal Verified 08/06/19 14:25 Pain hydrochlorothiazide Allergy FLUSHING Verified 08/06/19 14:25 OF SKIN,BLURRY VISION iodine Allergy Rash/Hives Verified 08/06/19 14:25 metoprolol tartrate Allergy Itching Verified 08/06/19 14:25 [From Lopressor] nebivolol HCl [From Bystolic] Allergy Dyspnea,SWELLING Verified 08/06/19 14:25 OF NECK povidone-iodine Allergy Rash/Hives Verified 08/06/19 14:25 [From Betadine] ramipril [From Altace] Allergy Dyspnea,ANG Verified 08/06/19 14:25 IOEDEMA soap [From Betadine] Allergy Rash/Hives Verified 08/06/19 14:25 sulfamethoxazole Allergy Rash/Hives Verified 08/06/19 14:25 [From Bactrim] trimethoprim [From Bactrim] Allergy Rash/Hives Verified 08/06/19 14:25 warfarin sodium Allergy SEVERE Verified 08/06/19 14:25 [From Coumadin] HEADACHE, RING OF EARS Ukrtjju-Opj-Pff Reductase AdvReac VERY WEAK Verified 08/06/19 14:25 Inhibitor CARVEDIOL CR Allergy DYSPNEA,CAN Uncoded 08/06/19 10:18 TAKE COREG PLAIN" Physical Exam Vitals: Vital Signs Temp Pulse Pulse Resp BP BP BP 08/07/19 08:00 98.3 F 70 18 163/90 08/07/19 03:38 97.5 F L 67 18 123/63 08/06/19 23:35 97.4 F L 78 18 93/51 08/06/19 19:34 98.5 F 67 18 154/87 08/06/19 14:47 98.4 F 73 18 154/89 08/06/19 14:22 97.9 F 78 16 132/75 08/06/19 12:17 60 16 136/70 08/06/19 11:30 66 19 144/74 08/06/19 11:00 66 12 151/93 08/06/19 10:32 67 15 08/06/19 10:15 98.0 F 80 18 190/74 Pulse Ox 08/07/19 08:00 96 08/07/19 03:38 95 08/06/19 23:35 96 08/06/19 19:34 96 08/06/19 14:47 97 08/06/19 14:22 98 08/06/19 12:17 99 08/06/19 11:30 95 08/06/19 11:00 96 08/06/19 10:32 98 08/06/19 10:15 97 Intake and Output 08/06/19 08/07/19 08/07/19 22:59 06:59 14:59 Other: Voiding Method Toilet Toilet Toilet # Voids 1 1 Weight 113.398 kg Results 08/07/19 05:56 08/07/19 05:56 Cardiac Enzymes 12/22/19 12/22/19 12/22/19 Range/Units 10:43 10:43 16:25 AST 35 (14-36) U/L Troponin I <0.012 <0.012 (0.000-0.034) ng/mL 08/06/19 08/07/19 Range/Units 22:24 05:56 AST 26 (14-36) U/L Troponin I <0.012 (0.000-0.034) ng/mL Coagulation 08/06/19 Range/Units 10:43 PT 10.1 (9.0-12.0) sec APTT 25.0 (22.0-30.0) sec Lipids 08/07/19 Range/Units 05:56 Triglycerides 100 (<150) mg/dL Cholesterol 181 (<200) mg/dL HDL Cholesterol 60 (40-60) mg/dL CBC 08/06/19 08/07/19 Range/Units 10:43 05:56 WBC 7.3 5.6 (3.8-10.6) k/uL RBC 4.71 4.15 (3.80-5.40) m/uL Hgb 14.0 12.6 (11.4-16.0) gm/dL Hct 42.2 38.1 (34.0-46.0) % Plt Count 318 270 (150-450) k/uL Comprehensive Metabolic Panel 08/06/19 08/07/19 Range/Units 10:43 05:56 Sodium 140 141 (137-145) mmol/L Potassium 3.9 3.5 (3.5-5.1) mmol/L Chloride 105 105 (98-107) mmol/L Carbon Dioxide 29 27 (22-30) mmol/L BUN 10 13 (7-17) mg/dL Creatinine 0.74 0.78 (0.52-1.04) mg/dL Glucose 106 H 92 (74-99) mg/dL Calcium 9.8 9.3 (8.4-10.2) mg/dL AST 35 26 (14-36) U/L ALT 16 13 (4-34) U/L Alkaline Phosphatase 93 71 (38-126) U/L Total Protein 8.0 6.6 (6.3-8.2) g/dL Albumin 4.6 3.6 (3.5-5.0) g/dL Current Medications Generic Name Dose Route Start Last Admin Trade Name Freq PRN Reason Stop Dose Admin Carvedilol 12.5 mg 08/06/19 21:00 08/07/19 08:43 Coreg PO 12.5 mg BID-W/MEALS [facility] Administration Hydrochlorothiazide 25 mg 08/07/19 14:00 Hydrodiuril PO DAILY@1400 GAB Meclizine HCl 25 mg 08/07/19 09:00 08/07/19 08:43 Antivert PO 25 mg BID [facility] Administration Nitroglycerin 0.4 mg 08/06/19 12:54 Nitrostat SUBLINGUAL Q5M PRN Chest Pain Pravastatin Sodium 10 mg 08/07/19 21:00 Pravachol PO HS [facility] Intake and Output 08/06/19 08/07/19 08/07/19 22:59 06:59 14:59 Other: Voiding Method Toilet Toilet Toilet # Voids 1 1 Weight 113.398 kg 08/07/19 05:56 08/07/19 05:56
[2019-08-07 11:34] VITALS: BP 120/76; PULSE 78; TEMP 98.9
[2019-08-07] MEDS ORDERED: HYDROCHLOROTHIAZIDE 25 MG TAB PO SCH (14:00)
--- NOTE | 2019-08-07 14:12 | US ---
EXAMINATION TYPE: US carotid duplex BILAT DATE OF EXAM: 08/07/2019 COMPARISON: US dated 05/24/2016 CLINICAL HISTORY: dizziness. Pt states dizziness EXAM MEASUREMENTS: RIGHT: Peak Systolic Velocity (PSV) cm/sec ----- Right CCA: 79.3 ----- Right ICA: 96.0 ----- Right ECA: 103 ICA/CCA ratio: 1.2 RIGHT: End Diastole cm/sec ----- Right CCA: 13.6 ----- Right ICA: 23.4 ----- Right ECA: 9.5 LEFT: Peak Systolic Velocity (PSV) cm/sec ----- Left CCA: 92.2 ----- Left ICA: 107 ----- Left ECA: 101 ICA/CCA ratio: 1.2 LEFT: End Diastole cm/sec ----- Left CCA: 22.1 ----- Left ICA: 33.8 ----- Left ECA: 11.7 VERTEBRALS (direction of flow): Right Vertebral: Antegrade Left Vertebral: Antegrade Rhythm: Normal Grayscale, color Doppler, spectral Doppler imaging performed of the common and internal carotid arter ies. No significant stenosis seen IMPRESSION: No hemodynamic significant stenosis of the proximal internal carotid arteries bilaterall y by Doppler criteria, an indirect measurement of carotid stenosis
--- NOTE | 2019-08-07 14:54 | P.DS ---
Providers Date of admission: 08/06/19 14:12 Expected date of discharge: 08/07/19 Attending physician: Kathie St Consults: 08/06/19 12:54 Consult Physician Urgent Consulting Provider: Florian Pratt Consult Reason/Comments: chest pressure Do you want consulting provider notified?: Yes Primary care physician: Kathie Maciel [facility] Course: Discharge diagnosis 1. Chest pain with dizziness. Head CT completed showing no acute intracranial abnormality. Probable sebaceous cyst within the scalp in the right posterior parietal region. Cardiology services have been consulted. Troponins negative 3. Patient underwent cardiac catheterization in October 2018 which showed mild nonobstructive coronary artery disease involving the left anterior descending artery in the midportion normal left ventricular systolic function medical management. 2-D echo also completed in October 2018 showing an EF of 50-55%. Discussed case with cardiology Dr. Grande. No further cardiac workup at this time. Carotid Doppler completed showing no hemodynamic significant stenosis of the proximal internal carotid arteries bilaterally by Doppler criteria and indirect measurement of the carotid stenosis. Per cardiology and acute coronary event has been ruled out. Patient will be DC'd on Antivert as needed patient to resume home cardiac meds no further workup at this time patient follow-up with Dr. Menjivar outpatient 2. Hyperlipidemia. Patient maintained on statin 3. History of vertigo. Patient is maintained on Antivert 4. History of essential hypertension pulmonary present 5. History of atrial fibrillation patient reports this was a one-time occurrence. Never started on anticoagulation Hospital course This is a 69-year-old female patient who presented to the ER with complaint of chest pressure and dizziness. Patient reports that symptoms started yesterday around 5 AM patient reports that she had a headache first with some dizziness then progressed to chest discomfort across her chest. Patient does report that she has a history of vertigo. 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 Head CT completed showing no acute intracranial abnormality. Probable sebaceous cyst within the scalp in the right posterior parietal region. His x-ray completed showing no significant interval change in appearance of the chest. EKG completed showing normal sinus rhythm normal EKG. She underwent cardiac catheterization in October 2018 which showed mild nonobstructive coronary artery disease involving the left. Descending artery in the midportion normal left ventricle systolic function per cardiology medical management that time. Troponins negative 3. UA negative. At this time will order carotid Doppler. Cardiology services have been consulted. On examination patient feels significantly improved. Antivert did help with dizziness symptoms. Patient denies chest pain or shortness of breath. Patient denies any nausea vomiting or diarrhea. Patient denies any urinary burning or frequency On 08/07/2019 patient alert and oriented 3. Patient feels significantly improved. Patient was evaluated by cardiology services had recent cardiac workup in October 2018. No further cardiac workup at this time. Carotid Doppler was completed showing no hemodynamic significant stenosis of the proximal internal carotid arteries bilaterally. Patient will be DC'd on Antivert as needed for vertigo. She denies any chest pain or shortness of breath. Patient denies nausea vomiting or diarrhea. Patient denies any urinary burning or frequency. I performed an examination of the patient and discussed their management with [facility] Nurse Practitioner. I have reviewed the Nurse Practitioner's notes and agree with the documented findings and plan of care Patient Condition at Discharge: Stable Plan - Discharge Summary Discharge Rx Participant: No New Discharge Prescriptions: New Meclizine [Antivert] 25 mg PO BID PRN 7 Days #14 tab PRN Reason: Vertigo Continue Levothyroxine Sodium [Synthroid] 25 mcg PO DAILY Ubidecarenone [Co Q-10] 100 mg PO DAILY Cranberry Fruit Extract [Cranberry] 500 mg PO DAILY Brimonidine Tartrate [Alphagan P 0.15% Ophth Soln] 1 drops BOTH EYES BID Hydrochlorothiazide [Hydrodiuril] 25 mg PO DAILY@1400 Carvedilol [Coreg] 12.5 mg PO BID Glucosam/Mark-Msm1/C/Aniket/Bosw [Glucosamine-Chondroitin Tablet] 1 tab PO DAILY Turmeric Root Extract [Turmeric] 500 mg PO DAILY Pravastatin Sodium [Pravachol] 10 mg PO HS Discharge Medication List Levothyroxine Sodium [Synthroid] 25 mcg PO DAILY 05/24/16 [History] Brimonidine Tartrate [Alphagan P 0.15% Ophth Soln] 1 drops BOTH EYES BID 11/08/18 [History] Carvedilol [Coreg] 12.5 mg PO BID 11/08/18 [History] Cranberry Fruit Extract [Cranberry] 500 mg PO DAILY 11/08/18 [History] Glucosam/Mark-Msm1/C/Aniket/Bosw [Glucosamine-Chondroitin Tablet] 1 tab PO DAILY 11/08/18 [History] Hydrochlorothiazide [Hydrodiuril] 25 mg PO DAILY@1400 11/08/18 [History] Ubidecarenone [Co Q-10] 100 mg PO DAILY 11/08/18 [History] Pravastatin Sodium [Pravachol] 10 mg PO HS 08/06/19 [History] Turmeric Root Extract [Turmeric] 500 mg PO DAILY 08/06/19 [History] Meclizine [Antivert] 25 mg PO BID PRN 7 Days #14 tab 08/07/19 [Rx] Follow up Appointment(s)/Referral(s): Ric Rouse MD [STAFF PHYSICIAN] - 08/29/19 8:[address] MD [Primary Care Provider] - 1-2 days Activity/Diet/Wound Care/Special Instructions: activity as tolerated Diet heart healthy Discharge Disposition: HOME SELF-CARE
[2019-08-07] MEDS ORDERED: PRAVASTATIN SODIUM 20 MG TAB PO SCH (21:00)
== END 2019-08-07 15:05 | disposition home or self-care (01) ==
LOC: EC 09:51 → 1SOBS 14:12
PROVIDERS: ADMIT Internal Medicine; ATTEND Internal Medicine
DX: R42 Dizziness and giddiness (principal); R07.89 Other chest pain; E78.5 Hyperlipidemia, unspecified; I27.20 Pulmonary hypertension, unspecified; Z86.79 Personal history of other diseases of the circulatory system; I25.10 Atherosclerotic heart disease of native coronary artery without angina pectoris; I10 Essential (primary) hypertension; R93.89 Abnormal findings on diagnostic imaging of other specified body structures; E66.9 Obesity, unspecified; Z68.34 Body mass index [BMI] 34.0-34.9, adult; Z90.2 Acquired absence of lung [part of]; Z86.11 Personal history of tuberculosis; Z79.899 Other long term (current) drug therapy; Z79.890 Hormone replacement therapy; Z88.8 Allergy status to other drugs, medicaments and biological substances; Z88.1 Allergy status to other antibiotic agents; Z91.048 Other nonmedicinal substance allergy status; Z88.2 Allergy status to sulfonamides; Z90.710 Acquired absence of both cervix and uterus; Z90.49 Acquired absence of other specified parts of digestive tract; Z98.890 Other specified postprocedural states; Z87.898 Personal history of other specified conditions; Z87.891 Personal history of nicotine dependence; Z82.49 Family history of ischemic heart disease and other diseases of the circulatory system
CPT/HCPCS: 93005 ×2; 96361; 96374; 99285; 36415; 80061; 80053 ×2; 84484; 85025 ×2; 85610; 85730; 81003; 71046; 93880; 70450; G0378 ×2; J2765

== ENCOUNTER → 2020-05-14 | Outpatient (CLI) | payer BC ==
--- NOTE | 2020-05-14 22:57 | CONS ---
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 This has been going on for the past 7-8 months. No snoring. Her sleep is fragmented. She goes to bed between 11:00 pm to midnight and she is waking up almost every 1 and 1/2 to 2 hours. This occurred around 3-4 times in the middle of the night and she is able to generate and go back to sleep without any major difficulties. No major tiredness or sleepiness during the day. No issues with memory and concentration. No issues with anxiety or depression. No issues with pain. No issues with heartburn, shortness of breath or chest pain. No issues with any restlessness in lower extremities. No sleepwalking or sleeptalking. No heartburn. No anxiety or panic attacks. She has been having difficulty with blood pressure control and she has been taking the Coreg for now. She is under the care of Dr. Rouse. For instance, her blood pressure today is 176/88. At times, she feels some head discomfort and pressure, especially when the blood pressure is elevated. No recent weight gain. No leg exercises. She sleeps in a bedroom alone and her sleeps in a different bedroom. She sleeps on her back. No TV or any electronics in the bedroom environment. Her bedroom environment is quite comfortable and there is no reported distractions. No sleep paralysis. No hallucinations or cataplexy. No nightmares. PAST MEDICAL HISTORY: Childhood TB, hypothyroidism, hyperlipidemia, hypertension. SURGICAL HISTORY: Includes lobectomy for childhood TB, appendectomy, hysterectomy and right parotid gland resection. DRUG ALLERGIES: CIPRO, IODINE, LANOXIN. OUTPATIENT MEDICATION: Including levothyroxine 25 mcg p.o. daily, pravastatin 10 mg p.o. daily, Coreg 12.5 mg p.o. b.i.d. and eye drops. SOCIAL HISTORY: Nonsmoker. No history of alcoholism. No history of IV drugs. FAMILY HISTORY: Noncontributory. Negative for sleep apnea. REVIEW OF SYSTEMS: Twelve-point review of system was done. Positive findings are mentioned above in history of present illness. PHYSICAL EXAMINATION: BP is 176/88, pulse 75, respirations 16, temperature 98.0. Saturation 98% on room air. Lares score is at 5. BMI 35.5. Height is 5 feet 10 inches, weight is 248. GENERAL APPEARANCE: Calm, comfortable. Head atraumatic, normocephalic. NECK: Supple. There is no JVD. No goiter or neck masses. LUNGS: Clear to auscultation. HEART: Heart sounds are regular rate and rhythm. Normal S1, S2. No S3, S4. No murmurs. ABDOMEN: Soft, nontender. No organomegaly. EXTREMITIES: No edema. No cyanosis or clubbing. IMPRESSION: 1. Sleep fragmentation without any significant hypersomnia or daytime tiredness or fatigue or sleepiness. This sleep fragmentation is most likely related to her comorbidities including frequent urination at nighttime. No clear signs of obstructive sleep apnea. No clear signs of any restless legs syndrome. No clear signs of any psychiatric disorder such as anxiety or depression. Her comorbidities are essentially well controlled. She needs to improve some of her sleep hygiene measures and eliminate some of the naps that she is taking in the morning. She also needs to achieve a better blood pressure control. I do not see the need for a polysomnography at this point in time. 2. Childhood TB. 3. Hyperlipidemia. 4. Hypertension. 5. Hypothyroidism. PLAN: 1. We will regulate the blood pressure more effective and the patient is going to contact Dr. Rouse's office in that regard. 2. Optimize comorbidities. 3. Improve sleep hygiene measures. 4. Eliminate all form of caffeinated beverages, especially late in the afternoon. 5. Implement good sleep hygiene measures including complete elimination of late dinners and late at night time activities/exercise. 6. Relaxation techniques. 7. Sleep promoting activities at night time were recommended. 8. See me back in a year's time in followup, earlier if needed. Based on her symptoms, my overall suspicion for sleep breathing disorder or any other comorbidities is low. Fortunately, the patient's sleep fragmentation not causing any major daytime sleepiness or issues with her level of alertness. Based on that, no polysomnogram was ordered unless her condition changes. MMODL / IJN: [id number] /
== END | disposition home or self-care (01) ==
LOC: SLEEP 16:14
PROVIDERS: ATTEND Internal Medicine Critical Care Medicine
DX: G47.8 Other sleep disorders (principal); E78.5 Hyperlipidemia, unspecified; I10 Essential (primary) hypertension; E03.9 Hypothyroidism, unspecified; Z86.11 Personal history of tuberculosis; Z79.890 Hormone replacement therapy; Z79.899 Other long term (current) drug therapy
CPT/HCPCS: 99211

== ENCOUNTER → 2020-06-27 | Outpatient (CLI) | payer BC, MEDICARE ==
--- NOTE | 2020-07-01 09:03 | MM ---
Reason for exam: screening (asymptomatic). Last mammogram was performed 1 year and 3 months ago. History: Patient is postmenopausal. Family history of breast cancer in aunt. Benign excisional biopsy of the right breast, 2004. Physical Findings: A clinical breast exam by your physician is recommended on an annual basis and results should be correlated with mammographic findings. MG Screening Mammo w CAD Bilateral CC and MLO view(s) were taken. Prior study comparison: April 11, 2019, bilateral MG screening mammo w CAD. April 01, 2018, bilateral MG screening mammo w CAD. There are scattered fibroglandular densities. There is chronic nodularity bilaterally. No significant changes when compared with prior studies. ASSESSMENT: Negative, BI-RAD 1 RECOMMENDATION: Routine screening mammogram of both breasts in 1 year.
== END | disposition home or self-care (01) ==
LOC: RADMAMWWP 13:27
PROVIDERS: ATTEND Internal Medicine
DX: Z12.31 Encounter for screening mammogram for malignant neoplasm of breast (principal)
CPT/HCPCS: 77067

== ENCOUNTER → 2021-07-17 | Outpatient (CLI) | payer MEDICARE ==
--- NOTE | 2021-07-18 12:04 | MM ---
Reason for exam: screening (asymptomatic). Last mammogram was performed 1 year and 1 month ago. History: Patient is postmenopausal. Family history of breast cancer in aunt. Benign excisional biopsy of the right breast, 2004. Physical Findings: A clinical breast exam by your physician is recommended on an annual basis and results should be correlated with mammographic findings. MG Screening Mammo w CAD Bilateral CC and MLO view(s) were taken. Prior study comparison: June 27, 2020, bilateral MG screening mammo w CAD. April 11, 2019, bilateral MG screening mammo w CAD. There are scattered fibroglandular densities. There is chronic nodularity bilaterally. There is no discrete abnormality. ASSESSMENT: Benign, BI-RAD 2 RECOMMENDATION: Routine screening mammogram of both breasts in 1 year.
== END | disposition home or self-care (01) ==
LOC: RADMAMWWP 11:31
PROVIDERS: ATTEND Internal Medicine
DX: Z12.31 Encounter for screening mammogram for malignant neoplasm of breast (principal); Z78.0 Asymptomatic menopausal state; Z80.3 Family history of malignant neoplasm of breast
CPT/HCPCS: 77067

== ENCOUNTER → 2022-05-20 | Outpatient (CLI) | payer MEDICARE ==
--- NOTE | 2022-05-21 08:11 | MR ---
EXAMINATION TYPE: MR lumbar spine wo con DATE OF EXAM: 05/20/2022 7:22 PM COMPARISON: None. CLINICAL INDICATION:Female, 72 years old with history of M43.16 SPONDYLOLISTHESIS, LUMBAR REGION; TECHNIQUE: Multi planar, multi sequence imaging was performed utilizing: T1-weighted, T2-weighted, a nd turbo inversion recovery imaging of the lumbar spine. IV Contrast: None FINDINGS: Alignment: The lumbar vertebral bodies have preserved heights . There is grade 1 anterolisthesis of L 4 on L5. Cord: The conus medullaris and the distal spinal cord appear unremarkable with regards to their signa l intensity and morphology. Bones/Discs: Bone signal is within normal limits. Scattered mild Modic endplate changes. No evidence for bony edema on inversion recovery imaging. Multilevel degenerative disc disease is noted and most pronounced at the L2-L5. L1-L2: No significant disc pathology. Spinal canal is patent. Facet joint arthropathy without signifi cant neural foraminal stenosis. L2-L3: Disc bulging with facet joint arthropathy and ligamentum flavum hypertrophy changes result in severe spinal canal stenosis there is moderate bilateral neural foraminal stenosis. There is moderate to severe left and moderate right neural foraminal stenosis. Small right facet joint effusion noted. L3-L4: Disc bulging with facet joint arthropathy and ligamentum flavum hypertrophy changes result in severe spinal canal stenosis there is moderate bilateral neural foraminal stenosis. L4-L5: Grade 1 anterolisthesis of L4 and L5 with disc uncovering and facet arthropathy without result ing in mild spinal canal stenosis. The neural foramen are mildly narrowed. L5-S1: Bulge without significant spinal canal or neural foraminal stenosis. Other findings: None. IMPRESSION: 1. Degeneration changes worse at L2-L3 and L3-L4 with severe L3-L4 and L2-L3 spinal canal stenosis. 2. Multilevel disc degeneration changes resulting in varying degrees of neural foraminal stenosis.
== END | disposition home or self-care (01) ==
LOC: RADMRIMAIN 17:57
PROVIDERS: ATTEND Physical Medicine & Rehabilitation
DX: M43.16 Spondylolisthesis, lumbar region (principal); M47.816 Spondylosis without myelopathy or radiculopathy, lumbar region; M51.36 Other intervertebral disc degeneration, lumbar region; M48.061 Spinal stenosis, lumbar region without neurogenic claudication
CPT/HCPCS: 72148

== ENCOUNTER → 2022-08-18 | Outpatient (CLI) | payer MEDICARE ==
--- NOTE | 2022-08-19 17:18 | MM ---
Reason for Exam: Screening (asymptomatic). Last mammogram was performed 1 year(s) and 1 month(s) ago. Patient History: Menarche at age 13. First Full-Term at age 21. Hysterectomy at age 45. Postmenopausal. 2004, Benign Excisional Biopsy on the right side. Maternal aunt had breast cancer. Risk Values: Suni 5 year model risk: 1.9%. NCI Lifetime model risk: 4.8%. Prior Study Comparison: 11/19/2015 Bilateral Screening Mammogram, [facility]. 11/20/2016 Bilateral Screening Mammogram, [facility]. 04/01/2018 Bilateral Screening Mammogram, [facility]. 04/11/2019 Bilateral Screening Mammogram, [facility]. 06/27/2020 Bilateral Screening Mammogram, [facility]. 07/17/2021 Bilateral Screening Mammogram, [facility]. Tissue Density: There are scattered fibroglandular densities. Findings: Analyzed By CAD. Pattern appears symmetrical and stable. Chronic appearing stable nodularity is present bilaterally. No suspicious groups of microcalcifications, spiculated or lobular masses, architectural distortion or other secondary signs of malignancy are mammographically apparent. Overall Assessment: Benign, BI-RAD 2 Management: Screening Mammogram of both breasts in 1 year. A negative mammogram report should not preclude additional follow up of suspicious palpable abnormalities. Patient should continue monthly self breast exam. A clinical breast exam by your physician is recommended on an annual basis and results should be correlated with mammographic findings. Electronically signed and approved by: Zackery Manuel D.O. Radiologis
== END | disposition home or self-care (01) ==
LOC: RADMAMWWP 08:35
PROVIDERS: ATTEND Internal Medicine
DX: Z12.31 Encounter for screening mammogram for malignant neoplasm of breast (principal); Z78.0 Asymptomatic menopausal state; Z80.3 Family history of malignant neoplasm of breast; Z98.890 Other specified postprocedural states
CPT/HCPCS: 77063; 77067

== ENCOUNTER → 2023-09-21 | Outpatient (CLI) | payer MEDICARE ==
--- NOTE | 2023-09-22 14:38 | MM ---
Reason for Exam: Screening (asymptomatic). Last mammogram was performed 1 year(s) and 1 month(s) ago. Patient History: Menarche at age 13. First Full-Term at age 21. Hysterectomy at age 45. Postmenopausal. 2004, Benign Excisional Biopsy on the right side. Maternal aunt had breast cancer. Risk Values: Suni 5 year model risk: 1.9%. NCI Lifetime model risk: 4.6%. Prior Study Comparison: 06/27/2020 Bilateral Screening Mammogram, [facility]. 07/17/2021 Bilateral Screening Mammogram, [facility]. 08/18/2022 Bilateral MG 3D screening mammo w/cad, [facility]. Tissue Density: The breast tissue is almost entirely fat. Findings: Analyzed By CAD. There is no suspicious group of microcalcifications or new suspicious mass. Overall Assessment: Negative, BI-RAD 1 Management: Screening Mammogram of both breasts in [address] [facility] will attempt to contact patient to return for supplemental views and ultrasound if indicated. Patient should continue monthly self-breast exams. A clinical breast exam by your physician is recommended on an annual basis. This exam should not preclude additional follow-up of suspicious palpable abnormalities. Note on Suni scores and lifetime risk: 1. A Suni score greater than 3% is considered moderate risk. If this is the case, consider specialist referral to assess eligibility for a risk reducing agent. 2. If overall lifetime risk for the development of breast cancer is 20% or higher, the patient may qualify for future screening with alternating mammogram and breast MRI. Electronically signed and approved by: Franklyn Cerna DO
== END | disposition home or self-care (01) ==
LOC: RADMAMWWP 15:35
PROVIDERS: ATTEND Internal Medicine
DX: Z12.31 Encounter for screening mammogram for malignant neoplasm of breast (principal); Z80.3 Family history of malignant neoplasm of breast; Z78.0 Asymptomatic menopausal state
CPT/HCPCS: 77063; 77067

== ENCOUNTER → 2024-12-21 | Outpatient (CLI) | payer MEDICARE ==
--- NOTE | 2024-12-21 11:45 | MM ---
Reason for Exam: Screening (asymptomatic). Last mammogram was performed 1 year(s) and 3 month(s) ago. Patient History: Menarche at age 13. First Full-Term at age 21. Hysterectomy at age 45. Postmenopausal. 2004, Benign Excisional Biopsy on the right side. Maternal aunt had breast cancer. Risk Values: Suni 5 year model risk: 1.9%. NCI Lifetime model risk: 4.3%. Prior Study Comparison: 07/17/2021 Bilateral Screening Mammogram, [facility]. 08/18/2022 Bilateral MG 3D screening mammo w/cad, [facility]. 09/21/2023 Bilateral MG 3D screening mammo w/cad, [facility]. Tissue Density: There are scattered areas of fibroglandular density. Findings: Analyzed By CAD. Right breast: There is no suspicious group of microcalcifications or new suspicious mass. Left breast: There is no suspicious group of microcalcifications or new suspicious mass. Overall Assessment: Negative, BI-RAD 1 Management: Screening Mammogram of both breasts in [address] [facility] will attempt to contact patient to return for supplemental views and ultrasound if indicated. Patient should continue monthly self-breast exams. A clinical breast exam by your physician is recommended on an annual basis. This exam should not preclude additional follow-up of suspicious palpable abnormalities. Note on Suni scores and lifetime risk: 1. A Suni score greater than 3% is considered moderate risk. If this is the case, consider specialist referral to assess eligibility for a risk reducing agent. 2. If overall lifetime risk for the development of breast cancer is 20% or higher, the patient may qualify for future screening with alternating mammogram and breast MRI. [facility], , 12/21/2024 11:29 AM. Electronically signed and approved by: Franklyn Cerna DO
== END | disposition home or self-care (01) ==
LOC: RADMAMWWP 11:11
PROVIDERS: ATTEND Internal Medicine
DX: Z12.31 Encounter for screening mammogram for malignant neoplasm of breast (principal); R92.323 Mammographic fibroglandular density, bilateral breasts; Z78.0 Asymptomatic menopausal state
CPT/HCPCS: 77063; 77067